=== PATIENT | male | born 1965 | race Caucasian/White ===

== ENCOUNTER 2021-02-22 16:00 | Emergency (ER) | payer BC, SELFPAY ==
[2021-02-22 16:01] VITALS: BP 171/116; PULSE 132; RESP 22; TEMP 37.2; O2SAT 100; BMI 20.4
--- NOTE | 2021-02-22 16:09 | EKG12_ITS ---
Test Reason : DIZZY/PALPS Blood Pressure : / mmHG Vent. Rate : 114 BPM Atrial Rate : 114 BPM P-R Int : 164 ms QRS Dur : 074 ms QT Int : 322 ms P-R-T Axes : 037 011 032 degrees QTc Int : 443 ms Sinus tachycardia Otherwise normal ECG Confirmed by BRUNILDA JUAREZ, SHARRON ([id number]), editor in chief ARNOLD FLORES ([id number]) on 02/25/2021 8:04:15 AM Referred By: JOANIE Confirmed By:MIRZA WORLEY MD
[2021-02-22 16:13] LABS: Absolute Neutrophil Count 11.8 X10^3/uL (2.0-7.7); Basophil# 0.08 X10^3/uL; Basophil% 0.6 % (0-1); Eosinophil# 0.09 X10^3/uL; Eosinophils% 0.6 % (0-5); Hematocrit 48.8 % (40-54); Hemoglobin 16.4 g/dL (13.0-16.5); Mean Corp Hgb Conc 33.6 g/dL (32-36); Mean Corpuscular Hgb 32.5 pg (27.0-32.0); Mean Corpuscular Volume 96.8 fL (80-94); Mean Platelet Vol. 9.5 fl (6.2-12.0); Monocyte# 0.85 X10^3/uL; Monocyte% 5.9 % (0-10); NRBC Flagged by Analyzer 0 % (0-5); Neutrophil # 11.83 X10^3/uL (2.7-7.7); Neutrophil % 81.4 % (47-70); Platelet Count 315 K/mm3 (150-450); RBC Distribution Width SD 46.5 fl (35.1-43.9); Red Blood Count 5.04 M/mm3 (4.6-6.2); White Blood Count 14.5 K/mm3 (4.4-11.0)
--- NOTE | 2021-02-22 16:15 | EDS_ITS ---
HPI History of Present Illness Chief Complaint: Palpitations Narrative Narrative: 55-year-old male presenting with palpitations and anxiety. He states he had anxiety for the last 2 years but has never been this anxious. Patient admits to drinking 1-1/2 promotions this morning. He also admits to taking his prescribed 7.5 mg [place]'s. Patient also states that about 2 hours ago he smoked marijuana which may be medical grade. He is concerned this could have been laced with something. About an hour and a half ago he started feeling very anxious and having palpitations. He is not having chest pain. He does not feel short of breath. He feels very jittery. [facility] Medical History Bladder cancer Home Medications hydrocodone-acetaminophen [[place]] 1 tab PO Q6H PRN 02/22/21 [History Last Taken Unknown] Allergy/AdvReac Type Severity Reaction Status Date / Time No Known Allergies Allergy Verified 02/22/21 16:06 Surgical History H/O shoulder replacement Social History Smoking Status: Never smoker ROS ROS ED Constitutional Constitutional ED: Denies chills or fever(s) Eyes Eyes: Denies blurry vision or diplopia ENT ENT ED: Denies rhinorrhea or sore throat Cardiovascular Cardiovascular: Reports palpitations and racing heartbeat; Denies chest pain Respiratory/Chest Respiratory/Chest: Denies cough or dyspnea Gastrointestinal Gastrointestinal: Denies abdominal pain or nausea Genitourinary Genitourinary ED: Denies dysuria or hematuria Musculoskeletal Musculoskeletal: Denies arthralgias or myalgias Integumentary Denies Abrasions or rash Neurologic Neurologic: Denies headache(s) or paresthesias Psychiatric Psychiatric: Reports anxiety; Denies suicidal ideation or suicidal thoughts EXAM Physical Exam Const Vital Signs: 02/22/21 16:01 02/22/21 16:08 02/22/21 18:04 Temperature 98.9 F Temperature Source Temporal Pulse Rate 132 H 112 H Respiratory Rate 22 H 21 H Respiratory Effort Normal Non-Labored Respiratory Pattern Normal Blood Pressure 171/116 H 151/95 H Blood Pressure Mean 134 113 Pulse Ox 100 99 Oxygen Delivery Method Room Air Nasal Cannula 02/22/21 19:52 Temperature Temperature Source Pulse Rate 110 H Respiratory Rate 18 Respiratory Effort Respiratory Pattern Blood Pressure 132/90 H Blood Pressure Mean 104 Pulse Ox 99 Oxygen Delivery Method Positive well nourished General Appearance ED: NAD; Negative for pallor HEENT Reports moist mucous membranes Negative for trauma Eyes PERRL and EOMs intact bilaterally Chest Wall inspection of chest normal and palpation of chest normal Resp normal respiratory effort and clear to auscultation bilaterally Cardio regular rhythm Rate: tachycardic GI normal to inspection, nondistended, normoactive bowel sounds Extremity normal to inspection General Extremety ED: Negative for edema or tenderness General Extremity: Negative for edema Neuro oriented x3, CN's II-XII intact bilaterally and no sensory deficits noted Sensorium / Orientation: alert Motor Exam: strength 5/5 throughout Psych mental status grossly normal Mood & Affect: anxious Skin General Skin Exam: Negative for jaundice or pallor MDM MDM MDM Narrative Medical decision making narrative: Patient's blood work shows show a slight leukocytosis of 14.5 however there is other lab work is unremarkable. EtOH is negative. Urine drug screen is positive for opiates and marijuana which he admits to. Troponin is negative. EKG on my interpretation shows a sinus tachycardia at 114 bpm without sign of ischemic change. Chest x-ray my interpretation shows no acute cardiopulmonary process. Patient feeling improved. He does have a history of undiagnosed anxiety which may be causing his symptoms however he also states he smoked new marijuana today. I do not believe he needs further work-up or imaging. I will discharge him home in stable condition. Impression: 1. Palpitations Lab Data Labs: Laboratory Results - last 24 hr 02/22/21 02/22/21 02/22/21 16:05 16:05 16:17 WBC 14.5 H RBC 5.04 Hgb 16.4 Hct 48.8 MCV 96.8 H MCH 32.5 H MCHC 33.6 RDW Std Deviation 46.5 H RDW Coeff of Ceasar 13.0 Plt Count 315 MPV 9.5 Immature Gran % (Auto) 0.500 Neut % (Auto) 81.4 H Lymph % (Auto) 11.0 L Eddy % (Auto) 5.9 Eos % (Auto) 0.6 Baso % (Auto) 0.6 Absolute Neuts (auto) 11.8 H Absolute Lymphs (auto) 1.60 Nucleated RBC % 0 Sodium 135 L Potassium 4.0 Chloride 101 Carbon Dioxide 26.0 Anion Gap 8 BUN 5 L Creatinine 0.76 Estim Creat Clear Calc 100.19 Est GFR (MDRD) Af Amer 137 Est GFR (MDRD) Non-Af 113 BUN/Creatinine Ratio 6.6 L Glucose 209 H Calcium 9.1 Troponin I High Sens 9 Urine Opiates Screen Urine Methadone Screen Ur Barbiturates Screen Ur Phencyclidine Scrn Ur Amphetamines Screen U Methamphetamin-MDMA U Benzodiazepines Scrn Urine Cocaine Screen U Cannabinoids Screen Ur Drug Screen Comment Ethyl Alcohol < 3.0 02/22/21 16:39 WBC RBC Hgb Hct MCV MCH MCHC RDW Std Deviation RDW Coeff of Ceasar Plt Count MPV Immature Gran % (Auto) Neut % (Auto) Lymph % (Auto) Eddy % (Auto) Eos % (Auto) Baso % (Auto) Absolute Neuts (auto) Absolute Lymphs (auto) Nucleated RBC % Sodium Potassium Chloride Carbon Dioxide Anion Gap BUN Creatinine Estim Creat Clear Calc Est GFR (MDRD) Af Amer Est GFR (MDRD) Non-Af BUN/Creatinine Ratio Glucose Calcium Troponin I High Sens Urine Opiates Screen POSITIVE H Urine Methadone Screen NEGATIVE Ur Barbiturates Screen NEGATIVE Ur Phencyclidine Scrn NEGATIVE Ur Amphetamines Screen NEGATIVE U Methamphetamin-MDMA NEGATIVE U Benzodiazepines Scrn NEGATIVE Urine Cocaine Screen NEGATIVE U Cannabinoids Screen POSITIVE H Ur Drug Screen Comment Ethyl Alcohol Radiography Diagnostic Testing: Radiology Impression Chest X-Ray 02/22/21 16:37 IMPRESSION: Normal x-ray examination of the chest. Electronically Signed: Jimmie Burgos DO at 17:48 EDT Tel [phone], Service support , Discharge Plan Triage Chief Complaint: Palpitations ED Provider: Bobby Redding Dx/Rx/DC Orders Instructions: ED Palpitations Prescriptions: No Action hydrocodone-acetaminophen [[place]] 7.5-325 mg Tablet 1 tab PO Q6H PRN (Reason: Pain) RF: 0 Primary Care Provider: Care Physician,No Primary Referrals: Care Physician,No Primary [Primary Care Provider] - Disposition Disposition: Home, Self Care Discharge Date/Time: 02/22/21 19:52
[2021-02-22] MEDS: 0.9% Normal Saline 1,000 ML 1000 ML IV (16:18)
[2021-02-22 16:32] LABS: Anion Gap 8 (5-15); BUN 5 mg/dL (7-18); BUN/Creat Ratio 6.6 RATIO (10-20); Calcium,Total 9.1 mg/dL (8.5-10.1); Chloride 101 mmol/L (98-107); Creatinine, Serum 0.76 mg/dL (0.70-1.30); EST Glomerular Filtration Rate 113 mL/min (>60); Est Glom Filt Rate - Afr Amer 137 mL/min (>60); Estimated Creatinine Clearance 100.19 ml/min; Glucose 209 mg/dL (74-106); Sodium Level 135 mmol/L (136-145); Troponin-I HS 9 pg/mL (3.0-78.0)
--- NOTE | 2021-02-22 16:37 | RAD_ITS ---
STUDY: X-RAY CHEST REASON FOR EXAM: Male, 55 years old. Chest pain TECHNIQUE: Frontal view COMPARISON: None. FINDINGS: The lungs are clear and expanded. There is no demonstrated pleural abnormality. Normal size heart. Normal mediastinum and nixon. Normal visualized pulmonary arteries. Normal visualized aortic arch and descending thoracic aorta. Normal visualized thoracic spine. Left shoulder prosthesis is in place. Old right rib fractures. There is no demonstrated abnormality of the visualized soft tissue structures of the upper abdomen. RAD/Chest 1 View (Portable) IMPRESSION: Normal x-ray examination of the chest. Electronically Signed: Jimmie Burgos DO at 17:48 EDT Tel [phone], Service support ,
[2021-02-22 16:54] LABS: Alcohol, Blood (Medical)-Serum < 3.0 mg/dL
[2021-02-22 16:58] LABS: Amphetamine Urine VISTA NEGATIVE (<1000 ng/mL); Barbiturate Urine VISTA NEGATIVE (< 200 ng/mL); Benzodiazepine Urine VISTA NEGATIVE (< 200 ng/mL); Cocaine Urine VISTA NEGATIVE (< 300 ng/mL); Ecstacy Urine VISTA NEGATIVE (< 500 ng/mL); Methadone Urine VISTA NEGATIVE (< 300 ng/mL); PCP Urine VISTA NEGATIVE (< 25 ng/mL); THC Urine VISTA POSITIVE (< 50 ng/mL); Vista UDS pH Range 6
[2021-02-22 18:04] VITALS: BP 151/95; PULSE 112; RESP 21; O2SAT 99
[2021-02-22 19:52] VITALS: BP 132/90; PULSE 110; RESP 18; O2SAT 99
== END 2021-02-22 19:52 | disposition home or self-care (01) ==
PROVIDERS: Emergency Provider Student in an Organized Health Care Education/Training Program
DX: R00.2 Palpitations (principal); F12.90 Cannabis use, unspecified, uncomplicated; Z85.51 Personal history of malignant neoplasm of bladder
CPT/HCPCS: 71045; 80048; 80307; 82077; 84484; 85025; 93005; 96360; 99283; J7030; A4216